=== PATIENT | male | born 1975 | race Caucasian/White ===

== ENCOUNTER 2017-07-02 11:46 | Emergency (ER) | payer OTHER ==
[~2017-07-02] VITALS: Ht 177.8 cm; Wt 136.1 kg
[2017-07-02 12:18] VITALS: BP 122/62
[2017-07-02] MEDS ORDERED: IBUPROFEN 600 MG TABLET PO ONE ×2 (12:25→12:30)
== END 2017-07-02 12:48 | disposition home or self-care (01) ==
LOC: ER 11:47
DX: N64.4 Mastodynia (principal); M54.5 Low back pain; M79.672 Pain in left foot; F20.9 Schizophrenia, unspecified; F31.9 Bipolar disorder, unspecified; W01.0XXA Fall on same level from slipping, tripping and stumbling without subsequent striking against object, initial encounter; Y93.73 Activity, racquet and hand sports; Y92.89 Other specified places as the place of occurrence of the external cause; Y99.8 Other external cause status
CPT/HCPCS: 99282; A4606; Z7610